=== PATIENT | female | born 1990 ===

== ENCOUNTER 2017-12-29 14:15 | Emergency (ER) | payer MEDICAID ==
[2017-12-29] MEDS ORDERED: Albuterol-Ipratrop 3 mg / 0.5 (3 ml) UD INH STA (15:13)
[2017-12-29] MEDS ORDERED: Albuterol-Ipratrop 3 mg / 0.5 (3 ml) UD ONE (15:23)
--- NOTE | 2017-12-29 15:31 | ED PDOC ---
History of Present Illness History of Present Illness: Maddi Perea is a 27 year old female with no past medical history who is presenting to the Ed for evaluation of chest congestion associated with shortness of breath and cough onset 2 days ago. Patient states that she did not take her temperature at home but felt warm last night. She also admits that her one year old that she sleeps with at night was diagnosed with bronchiolitis. Patient offers no other medical complaints. PMD: none provided HPI: Influenza Time Seen by Provider: 12/29/17 14:39 Chief Complaint: Cough, Cold, Congestion Chief Complaint (Provider): Cough, Cold, Congestion History Per: Patient Exam Limitations: no limitations Onset/Duration Of Symptoms: Days Symptoms include: fever (subjective), difficulty breathing Past Medical History Reviewed: Historical Data, Nursing Documentation, Vital Signs Vital Signs: Last Vital Signs Temp 98.8 F 12/29/17 14:33 Pulse 108 H 12/29/17 14:33 Resp 16 12/29/17 14:33 BP 130/78 12/29/17 14:33 Pulse Ox 95 12/29/17 14:33 - Medical History PMH: No Chronic Diseases - Surgical History Surgical History: No Surg Hx - Family History Family History: States: Unknown Family Hx - Social History Current smoker - smoking cessation education provided: No Alcohol: None Drugs: Denies - Home Medications Home Medications: Ambulatory Orders Medication Instructions Recorded Albuterol 0.083% [Albuterol 0.083% 2.5 mg IH QID PRN #20 12/29/17 Inhal Jes (2.5 mg/3 ml) UD] Promethazine HCl/Codeine 10 ml PO Q8H PRN #150 ml 12/29/17 [Prometh-Codein 6.25-10 mg/5 ml] - Allergies Allergies/Adverse Reactions: Allergies Allergy/AdvReac Type Severity Reaction Status Date / Time No Known Allergies Allergy Verified 12/29/17 14:33 Review of Systems ROS Statement: Except As Marked, All Systems Reviewed And Found Negative Constitutional: Positive for: Fever Cardiovascular: Positive for: Other (chest congestion) Respiratory: Positive for: Cough, Shortness of Breath Physical Exam - Reviewed Nursing Documentation Reviewed: Yes Vital Signs Reviewed: Yes - Physical Exam Appears: Positive for: Non-toxic, No Acute Distress Head Exam: Positive for: ATRAUMATIC, NORMAL INSPECTION, NORMOCEPHALIC Skin: Positive for: Normal Color, Warm, DRY ENT: Positive for: Normal ENT Inspection Neck: Positive for: Normal, Painless ROM Cardiovascular/Chest: Positive for: Regular Rate, Rhythm. Negative for: Murmur Respiratory: Positive for: Normal Breath Sounds. Negative for: Respiratory Distress Back: Positive for: Normal Inspection Extremity: Positive for: Normal ROM Neurologic/Psych: Positive for: Alert, Oriented. Negative for: Motor/Sensory Deficits Medical Decision Making Medical Decision Making: Time: 15:13 Plan: --Chest X-Ray --Duoneb 3 ml INH --Peak Flow Pre/Post Tx CXR without acute cardiopulmonary disease. Scribe Attestation: Documented by Dyan Han, acting as a scribe for Carrie Garcia PA-C. Provider Scribe Attestation: All medical record entries made by the Scribe were at my direction and personally dictated by me. I have reviewed the chart and agree that the record accurately reflects my personal performance of the history, physical exam, medical decision making, and the department course for this patient. I have also personally directed, reviewed, and agree with the discharge instructions and disposition. - ECG O2 Sat by Pulse Oximetry: 95 Disposition - Clinical Impression Clinical Impression: Viral URI with cough - Patient ED Disposition Is Patient to be Admitted: No Counseled Patient/Family Regarding: Diagnosis, Need For Followup, Rx Given - Disposition Disposition: Routine/Home Disposition Time: 16:27 Condition: GOOD Prescriptions: Albuterol 0.083% [Albuterol 0.083% Inhal Jes (2.5 mg/3 ml) UD] 2.5 mg IH QID PRN #20 PRN Reason: Shortness Of Breath Promethazine HCl/Codeine [Prometh-Codein 6.25-10 mg/5 ml] 10 ml PO Q8H PRN #150 ml PRN Reason: Cough Instructions: Viral Upper Respiratory Infection, Adult (DC) Forms: [employer] (Japanese)
[2017-12-29] MEDS ORDERED: Promethazine/Cod 6.25mg-10mg/5ml Syr UD PO STA (15:49)
[2017-12-29] MEDS ORDERED: Promethazine/Cod 6.25mg-10mg/5ml Syr UD ONE (15:55)
--- NOTE | 2017-12-29 16:18 | RAD ---
Date of service: 12/29/2017 HISTORY: cough, congestion COMPARISON: No prior. TECHNIQUE: Chest PA and lateral FINDINGS: LUNGS: No active pulmonary disease. PLEURA: No significant pleural effusion identified. No pneumothorax apparent. CARDIOVASCULAR: No aortic atherosclerotic calcification present. Normal cardiac size. No pulmonary vascular congestion. OSSEOUS STRUCTURES: No significant abnormalities. VISUALIZED UPPER ABDOMEN: Normal. OTHER FINDINGS: None. IMPRESSION: No active disease.
[2017-12-29 16:53] VITALS: BP 152/80; PULSE 98; RESP 18; TEMP 99.9; O2SAT 99
== END 2017-12-29 16:55 | disposition home or self-care (01) ==
LOC: H.ER 14:15
DX: J11.1 Influenza due to unidentified influenza virus with other respiratory manifestations (principal); R05 Cough